=== PATIENT | female | born 1975 | race Hispanic/Latino ===

== ENCOUNTER → 2017-12-12 | Outpatient (CLI) | payer BC | END | disposition home or self-care (01) | LOC: OIH 13:23 | PROVIDERS: ATTEND Neurological Surgery | DX: M43.22 Fusion of spine, cervical region (principal); Z98.890 Other specified postprocedural states | CPT/HCPCS: 72040 ==

== ENCOUNTER → 2019-11-01 | Outpatient (CLI) | payer BC | END | disposition home or self-care (01) | LOC: OIH 08:10 | PROVIDERS: ATTEND Neurological Surgery | DX: M43.22 Fusion of spine, cervical region (principal); M40.40 Postural lordosis, site unspecified | CPT/HCPCS: 72040 ==

== ENCOUNTER 2020-02-08 06:04 | Day surgery (SDC) | payer BC ==
[~2020-02-08] VITALS: Ht 175.3 cm; Wt 88.9 kg
[2020-02-08] VITALS (11 sets, daily range): BP systolic 110–126; BP diastolic 59–84
[~2020-02-08 06:04] MED LIST: GABA-531 PO
[2020-02-08] MEDS ORDERED: LACTATED RINGERS 1000ML 1,000 ML IV ONE (06:52)
[2020-02-08] MEDS: CEFAZOLIN SODIUM 1 GM VIAL ONE ×2 (06:57→07:30)
[2020-02-08] MEDS ORDERED: LIDOCAINE HCL MDV 0.5% 50ML VIAL IJ ONE (07:23)
[2020-02-08] MEDS ORDERED: PROPOFOL 10 MG/ML 20ML VIAL IV ONE (07:25)
[2020-02-08] MEDS ORDERED: MIDAZOLAM HCL 1 MG/ML 2ML VIAL ONE ×2 (07:25→07:40)
[2020-02-08] MEDS ORDERED: FENTANYL CITRATE PF 50 MCG/1 ML 2ML VIAL ONE ×2 (07:25→07:41)
[2020-02-08] MEDS ORDERED: DEXAMETHASONE SOD PHOSPHATE 10MG/ML 1ML VIAL ONE (07:46)
[2020-02-08] MEDS ORDERED: ONDANSETRON HCL 4 MG/2 ML VIAL ONE (07:47)
[2020-02-08] MEDS ORDERED: ACETAMINOPHEN 325 MG TAB ONE (09:05)
[2020-03-13] MEDS ORDERED: NAPR-1023 PO (11:30)
== END 2020-02-08 09:35 | disposition home or self-care (01) ==
LOC: DAH 06:04
PROVIDERS: ATTEND Neurological Surgery
DX: G56.01 Carpal tunnel syndrome, right upper limb (principal); K21.9 Gastro-esophageal reflux disease without esophagitis; Z98.1 Arthrodesis status; Z88.5 Allergy status to narcotic agent
CPT/HCPCS: 64721; 81025; A4213; A4215 ×2; A4216; A4222; A4223 ×2; A4663; J0690; J1100; J2250 ×2; J2405; J2704; J3010 ×2; J3490; J7120

== ENCOUNTER 2020-03-14 05:52 | Day surgery (SDC) | payer BC ==
[2020-03-10 11:15] VITALS: BP 148/85
[2020-03-14] VITALS (13 sets, daily range): BP systolic 101–132; BP diastolic 52–92
[~2020-03-14] VITALS: Ht 175.3 cm; Wt 93.3 kg
[~2020-03-14 05:52] MED LIST changes: +CEFAZOLIN SODIUM 1 GM VIAL IVP SCH; +NAPR-1023 PO
[2020-03-14] MEDS ORDERED: LACTATED RINGERS 1000ML 1,000 ML IV ONE (05:56)
--- NOTE | 2020-03-14 06:00 | NUR ---
PREOP PT ARRIVED AMBULATORY IN NO DISTRESS. PT ORIENTED TO ROOM AND V/S TAKEN. PT HERE FOR LEFT CT RELEASE. WILL CONTINUE TO MONITOR PT.
[2020-03-14] MEDS ORDERED: LIDOCAINE HCL-MPF 0.5% 50ML VIAL IJ ONE (06:56)
[2020-03-14] MEDS ORDERED: MIDAZOLAM HCL 1 MG/ML 2ML VIAL ONE ×2 (06:58→07:31)
[2020-03-14] MEDS ORDERED: FENTANYL CITRATE PF 50 MCG/1 ML 2ML VIAL ONE ×2 (06:58→07:51)
[2020-03-14] MEDS ORDERED: PROPOFOL 10 MG/ML 20ML VIAL IV ONE (07:01)
--- NOTE | 2020-03-14 07:30 | NUR ---
OR PT TAKEN TO OR IN NO DISTRESS VIA STRETCHER
[2020-03-14] MEDS ORDERED: MEPERIDINE-PF 25 MG/ML SYG ONE (08:19)
[2020-03-14] MEDS ORDERED: KETOROLAC TROMETHAMINE 30MG/ML ONE (08:51)
== END 2020-03-14 09:54 | disposition home or self-care (01) ==
LOC: DAH 05:52
PROVIDERS: ATTEND Neurological Surgery
DX: G56.02 Carpal tunnel syndrome, left upper limb (principal); Z88.5 Allergy status to narcotic agent; Z79.899 Other long term (current) drug therapy; Z72.89 Other problems related to lifestyle; Z82.49 Family history of ischemic heart disease and other diseases of the circulatory system; Z83.3 Family history of diabetes mellitus
CPT/HCPCS: 64721; 81025; A4215 ×2; A4221; A4222; A4223 ×2; A4663; J0690; J1885; J2175; J2250 ×2; J2704; J3010 ×2; J3490; J7120; U0003

== ENCOUNTER 2022-05-07 11:07 | Day surgery (SDC) | payer BC ==
[2022-05-03 12:55] LABS: BASOPHILS % (AUTO) 0.8 % (0.0-5.0); EOSINOPHILS % (AUTO) 1.1 % (0.0-8.0); HEMATOCRIT 39.7 % (36-48); LYMPHOCYTES % (AUTO) 38.8 % (21.0-51.0); MEAN CORPUSCULAR HEMOGLOBIN 31.8 pg (27.0-33.0); MEAN CORPUSCULAR VOLUME 93.6 fL (79-99); MONOCYTES % (AUTO) 6.5 % (3.0-13.0); NEUTROPHILS % (AUTO) 52.5 % (40.0-77.0); PLATELET COUNT (AUTO) 349 K/uL (130-400); RED BLOOD CELL COUNT(AUTO) 4.24 MIL/uL (4.00-5.50); RED CELL DISTRIBUTION WIDTH 12.6 % (11.0-15.5); WHITE BLOOD COUNT (AUTO) 6.5 K/uL (4.8-10.8)
[2022-05-06 09:01] VITALS: BP 154/92
[~2022-05-07] VITALS: Ht 175.3 cm; Wt 87.9 kg
[2022-05-07] VITALS (17 sets, daily range): BP systolic 118–150; BP diastolic 74–90
[~2022-05-07 11:07] MED LIST changes: +CALDOLOR 800MG+NS 250ML 250 ML IV SCH; +LACTATED RINGERS 1000ML 1,000 ML IV ONE; -NAPR-1023 PO
[2022-05-07] MEDS ORDERED: MEPERIDINE-PF 25 MG/ML SYG ONE ×2 (13:39→13:47)
== END 2022-05-07 15:30 | disposition home or self-care (01) ==
LOC: DAH 11:07
PROVIDERS: ATTEND Obstetrics & Gynecology
DX: N92.1 Excessive and frequent menstruation with irregular cycle (principal); N85.8 Other specified noninflammatory disorders of uterus; N85.4 Malposition of uterus; Z98.51 Tubal ligation status; Z98.890 Other specified postprocedural states; Z86.16 Personal history of COVID-19; Z72.89 Other problems related to lifestyle
CPT/HCPCS: 84703; 85025; 86850 ×2; 86900 ×2; 86901 ×2; 87426; 36415 ×2; 58563; 81025; A6260; J7030 ×2; A4351; A4355; J7120; J0690; J2175 ×2; A4215; A4223; A4222; A4221; A4663; A4600; A4510; J1741